=== PATIENT | male | born 1980 | race Two or more races ===

== ENCOUNTER 2018-10-29 17:07 | Emergency (ER) | payer OTHER ==
[2018-10-29] MEDS ORDERED: NS 1,000 ML IV ONE (17:20)
--- NOTE | 2018-10-29 17:20 | EDPHY ---
HPI/HX/ROS/PE/MDM Narrative: CHIEF COMPLAINT: Abdominal pain HPI: This patient is a generally healthy 38-year-old male. He complains of sudden onset sharp right-sided abdominal/flank pain while sitting in a meeting earlier today. He endorses associated diaphoresis. He is fasting for Ramadan, but took some ayurvedic pain medication with small sips of water. Currently, his pain is resolved. He denies any dark-colored urine, dysuria. He had similar pain 4-5 years ago while in [place], and had imaging studies recommended but these were not completed. He denies fever, nausea, vomiting, diarrhea, chest pain, shortness of breath, or other associated symptoms. REVIEW OF SYSTEMS: A comprehensive 10 system review of systems is otherwise negative aside from elements mentioned in the history of present illness and medical decision making. PMH: Denies SOCIAL HISTORY: Employed, works as a automotive software engineer. Friends at bedside. Originally from [facility]. PHYSICAL EXAM: General:Patient is alert, in no acute distress. ENT:Eyes are normal to inspection. ENT inspection normal. Neck: Normal inspection. Full range of motion. Respiratory:No respiratory distress. Breath sounds normal bilaterally. Cardiovascular: Regular rate and rhythm. Strong peripheral pulses. Normal cap refill. Abdomen:The abdomen is nontender to palpation. There are no peritoneal signs. There are normal bowel sounds. Back: Normal to inspection. No tenderness to palpation. Skin: Normal color. No rash. Warm and dry. Extremities: Normal appearance. Full range of motion. Neuro: Oriented x3. Normal motor function. Normal sensory function. ED Course: 38 y/o male presents following an episode of sharp, severe right-sided flank pain. His pain has now largely resolved. Exam is unremarkable. Plan for labs including CBC, chemistries, UA. Plan to administer 1L IV NS. Laboratory studies are unremarkable. 19:[address] Frye, radiologist. The patient has multiple stones in bilateral kidneys. No evidence of appendicitis. Reassessed patient. Discussed imaging and laboratory results. The patient is currently largely asymptomatic. He does have some residual discomfort, plan to administer 30mg IV Toradol. Plan to discharge home in good condition with referral to urology. He understands he may pass additional stones. Provided prescription for Percocet for pain relief. Follow up and return precautions discussed. He is comfortable with this plan. MDM: This patient presents with classic signs and symptoms of a kidney stone. His workup in the emergency department is completely negative with the exception of the CT of the abdomen and pelvis which reveals multiple renal stones on both sides. Given the high likelihood nature of his story for kidney stone combined with the finding of numerous bilateral renal stones, I suspect that the patient has likely passed a small kidney stone. I see no evidence of appendicitis, bowel obstruction, bowel perforation or other surgical pathology. - Data Points Laboratory Results: Laboratory Results 10/29/18 17:31 10/29/18 17:31 10/29/18 10/29/18 10/29/18 17:31 17:31 17:30 WBC 7.48 10^3/uL 10^3/uL (3.80-9.50) RBC 6.15 10^6/uL 10^6/uL (4.40-6.38) Hgb 14.9 g/dL g/dL (13.7-17.5) Hct 45.6 % % (40.0-51.0) MCV 74.1 fL L fL (81.5-99.8) MCH 24.2 pg L pg (27.9-34.1) MCHC 32.7 g/dL g/dL (32.4-36.7) RDW 13.6 % % (11.5-15.2) Plt Count 306 10^3/uL 10^3/uL (150-400) MPV 9.6 fL fL (8.7-11.7) Neut % (Auto) 51.9 % % (39.3-74.2) Lymph % (Auto) 37.7 % % (15.0-45.0) Gem % (Auto) 6.7 % % (4.5-13.0) Eos % (Auto) 2.7 % % (0.6-7.6) Baso % (Auto) 0.7 % % (0.3-1.7) Nucleat RBC Rel Count 0.0 % % (0.0-0.2) Absolute Neuts (auto) 3.89 10^3/uL 10^3/uL (1.70-6.50) Absolute Lymphs (auto) 2.82 10^3/uL 10^3/uL (1.00-3.00) Absolute Monos (auto) 0.50 10^3/uL 10^3/uL (0.30-0.80) Absolute Eos (auto) 0.20 10^3/uL 10^3/uL (0.03-0.40) Absolute Basos (auto) 0.05 10^3/uL 10^3/uL (0.02-0.10) Absolute Nucleated RBC 0.00 10^3/uL 10^3/uL (0-0.01) Immature Gran % 0.3 % % (0.0-1.1) Immature Gran # 0.02 10^3/uL 10^3/uL (0.00-0.10) Sodium 139 mEq/L mEq/L (135-145) Potassium 4.0 mEq/L mEq/L (3.5-5.2) Chloride 100 mEq/L mEq/L (97-110) Carbon Dioxide 25 mEq/l mEq/l (22-31) Anion Gap 14 mEq/L mEq/L (6-14) BUN 16 mg/dL mg/dL (7-23) Creatinine 0.8 mg/dL mg/dL (0.7-1.3) Estimated GFR > 60 Glucose 87 mg/dL mg/dL (70-100) Calcium 9.5 mg/dL mg/dL (8.5-10.4) Urine Color YELLOW Urine Appearance CLEAR Urine pH 6.0 (5.0-7.5) Ur Specific [place] 1.017 (1.002-1.030) Urine Protein NEGATIVE (NEGATIVE) Urine Ketones NEGATIVE (NEGATIVE) Urine Blood NEGATIVE (NEGATIVE) Urine Nitrate NEGATIVE (NEGATIVE) Urine Bilirubin NEGATIVE (NEGATIVE) Urine Urobilinogen NEGATIVE EU EU (0.2-1.0) Ur Leukocyte Esterase NEGATIVE (NEGATIVE) Urine Glucose NEGATIVE (NEGATIVE) Medications Given: Discontinued Medications Sodium Chloride (Ns) 1,000 mls @ 0 mls/hr IV EDNOW ONE; Wide Open PRN Reason: Protocol Stop: 10/29/18 17:21 Last Admin: 10/29/18 17:45 Dose: 1,000 mls General Time Seen by Provider: 10/29/18 17:19 Initial Vital Signs: Initial Vital Signs Temperature (C) 36.4 C 10/29/18 17:15 Heart Rate 72 10/29/18 17:15 Respiratory Rate 18 10/29/18 17:15 Blood Pressure 100/73 10/29/18 17:15 O2 Sat (%) 100 10/29/18 17:15 O2 Delivery Mode Room Air Allergies/Adverse Reactions: aspirin Allergy (Verified 10/29/18 17:14) Home Medications: Medication Instructions Recorded NK [No Known Home Meds] 10/29/18 Departure - Departure Disposition: Home, Routine, Self-Care Clinical Impression: Kidney stones Condition: Good Instructions: Oxycodone/Acetaminophen (By mouth), Kidney Stones (ED) Additional Instructions: Follow up with a urologist within one week. Return to the emergency department for fever, severe pain, inability to urinate or other concerns. Referrals: Gio Smyth MD [Medical Doctor] - As per Instructions Report Scribed for: Yusef Reeder Report Scribed by: Khushbu Amaya Date of Report: 10/29/18 Time of Report: 17:20 Physician Review and Approval Statement: Portions of this note were transcribed by an ED scribe. I personally performed the history, physical exam, and medical decision making; and confirm the accuracy of the information in the transcribed note.
[2018-10-29 18:03] LABS: PLATELET COUNT 306 10^3/uL (150-400)
[2018-10-29] MEDS ORDERED: IOPAMIDOL (ISOVUE-300) 100 ML BTL ONE (18:33)
[2018-10-29] MEDS ORDERED: KETOROLAC 30 MG/1 ML SDV IVP ONE (19:06)
[2018-10-29] MEDS ORDERED: OXYCODONE/APAP 5/325MG PREPACK#4 BTL TAKEHOME ONE (19:08)
[2018-10-29 19:27] VITALS: BP 106/73
== END 2018-10-29 19:27 | disposition home or self-care (01) ==
DX: N20.0 Calculus of kidney (principal); E86.9 Volume depletion, unspecified
CPT/HCPCS: 96374; J1885; Q9967